=== PATIENT | female | born 1955 | race Asian ===

== ENCOUNTER → 2016-07-31 | Outpatient (CLI) | payer BC ==
[~2016-07-31] MED LIST: ACET325T96 PO; ACYC-223 PO; ASPCH81X PO; CALC-51 PO; CHOL1000 PO; CLOT10TR2 MT; FSMD/70 PO; LEVO-14 PO; MAGN400T6 PO; MELA1TAB5 PO; MULT-506 PO; MYCO250C26 PO; OMEP40CA41 PO; PRED20TA PO; PRT/20 PO; SENN-61 PO; SNG10 PO; SULF800T23 PO; TACR0.5C3 PO; TACR1CAP PO; TPRSR25 PO; VLC450 PO; ZLF/50 PO
[2016-07-31 10:51] LABS: HEMATOCRIT 30.1 % (37-47); MEAN CELL VOLUME 100.3 fL (80-100); MEAN CORPUSCULAR HGB CONC 31.9 g/dl (32-36); MEAN PLATELET VOLUME 9.3 fL (7.4-10.4); PLATELET COUNT 356 K/uL (130-400); WHITE BLOOD COUNT 8.95 K/uL (4.8-10.8)
[2016-07-31 11:53] LABS: BLOOD UREA NITROGEN 27 mg/dl (7-18); BUN/CREATININE RATIO 33.3 (10-20); CALCIUM 9.3 mg/dl (8.5-10.1); CARBON DIOXIDE 27 mmol/L (21-32); CHLORIDE 107 mmol/L (98-107); CREATININE 0.81 mg/dl (0.60-1.20); GLUCOSE 101 mg/dl (70-99); POTASSIUM 4.4 mmol/L (3.5-5.1); SODIUM 140 mmol/L (136-145)
== END | disposition home or self-care (01) ==
LOC: C.LABBC 07:55
PROVIDERS: ATTEND Nurse Practitioner
DX: Z94.1 Heart transplant status (principal); Z79.899 Other long term (current) drug therapy

== ENCOUNTER → 2017-05-01 | Outpatient (CLI) | payer OTHER ==
[~2017-05-01] MED LIST changes: -LEVO-14 PO; -MULT-506 PO; -SNG10 PO; -TPRSR25 PO
--- NOTE | 2017-05-01 11:03 | DIAGNOSTIC IMAGING REPORT ---
L HAND MIN 3 VIEWS ROUTINE HISTORY: 62 years-old Female PAIN IN JOINTS OF LEFT HAND acute left hand pain without acute trauma reported. Pain is most pronounced within the left fifth digit distally COMPARISON: None available TECHNIQUE: 3 views of the left hand FINDINGS: Mild particular osteopenia. Mild radiocarpal, first carpometacarpal and multidigit interphalangeal degenerative changes are noted without acute fracture or subluxation. There is mild soft tissue swelling with moderate joint space narrowing and marginal osteophytosis and subchondral sclerosis about the fifth DIP joint. Ill-defined lucency noted involving the radial aspect of the DIP joint along the middle phalangeal head and base of the distal phalanx. IMPRESSION: 1. No acute fracture or subluxation. 2. Moderate joint space narrowing with subchondral sclerosis and marginal osteophytosis about the fifth DIP joint with mild soft tissue swelling. Probable subcortical cystic changes with mild marginal erosions thought to be less likely. 3. Periarticular osteopenia and additional mild degenerative changes as above. The above report was generated using voice recognition software. It may contain grammatical, syntax or spelling errors. Electronically signed by: Nimesh Zapata M.D. 05/01/2017 11:01 AM Dictated Date/Time: 05/01/2017 10:58 AM
--- NOTE | 2017-05-01 11:45 | DIAGNOSTIC IMAGING REPORT ---
PELVIC COMPLETE NON OB HISTORY: 62 years-old Female POST MENOPAUSAL BLEEDING acute postmenopausal vaginal bleeding COMPARISON: None available TECHNIQUE: Multiple real-time sonographic images of the deep pelvic structures were obtained transabdominally and transvaginally assessing grayscale appearance, color and spectral flow FINDINGS: TRANSABDOMINAL: Pelvic structures are not well seen. TRANSVAGINAL: Anteflexed uterus measures 9.0 x 4.2 x 4.7 cm. Endometrium measures 5 mm. Nabothian cysts of the cervix. Multiple intramural leiomyomas are noted throughout the uterus, largest of which measures up to 1.3 cm within the posterior aspect of the right mid uterine body. The right ovary measures 2.5 x 1.2 x 1.2 cm and is unremarkable with arterial inflow documented. The left ovary measures 1.7 x 1.8 x 1.0 cm demonstrating arterial inflow. Increased vascularity is noted adjacent to the left ovary suggesting normal vascular structures. No definite adnexal mass lesions identified. Mild free fluid within the cul-de-sac and adjacent to the left ovary. IMPRESSION: 1. Endometrium is mildly thickened considering postmenopausal state at 5 mm. This finding could be further evaluated with hysteroscopy and tissue sampling. 2. Fibroid uterus. 3. Mild free pelvic fluid of uncertain etiology. The above report was generated using voice recognition software. It may contain grammatical, syntax or spelling errors. Electronically signed by: Nimesh Zapata M.D. 05/01/2017 11:43 AM Dictated Date/Time: 05/01/2017 11:35 AM
== END | disposition home or self-care (01) ==
LOC: C.ULTRBC 10:05
PROVIDERS: ATTEND Family Medicine
DX: N95.1 Menopausal and female climacteric states (principal); M25.542 Pain in joints of left hand; M25.742 Osteophyte, left hand; M79.89 Other specified soft tissue disorders; M85.842 Other specified disorders of bone density and structure, left hand; R93.8 Abnormal findings on diagnostic imaging of other specified body structures; D25.9 Leiomyoma of uterus, unspecified

== ENCOUNTER → 2017-08-20 | Outpatient (CLI) | payer OTHER ==
[~2017-08-20] MED LIST changes: +ACET-1693 PO; -ACET325T96 PO
--- NOTE | 2017-08-21 15:04 | MAMMOGRAPHY REPORT ---
BILATERAL DIGITAL SCREENING MAMMOGRAM TOMOSYNTHESIS WITH CAD: 08/20/2017 CLINICAL HISTORY: Asymptomatic. Personal history of breast cancer. TECHNIQUE: Breast tomosynthesis in addition to standard 2D mammography was performed. Current study was also evaluated with a Computer Aided Detection (CAD) system. COMPARISON: Comparison is made to exams dated: 04/10/2013 mammogram - [facility] and 04/13/2011 mammogram. BREAST COMPOSITION: The tissue of both breasts is extremely dense, which lowers the sensitivity of m ammography. FINDINGS: There is a cluster of microcalcifications in the 11:00 to 12:00 right breast posteriorly, for which additional spot magnification views are recommended. A possible subtle area of architectur al distortion in the far posterior 11:00 right breast needs additional spot compression tomosynthesis views and possible ultrasound. There is a coiled metallic biopsy marker clip in the 12:00 posterior right breast. Stable surgical c lips in the superior posterior left breast, projecting near and over the pectoralis muscle on the MLO view. No other suspicious mass, architectural distortion or cluster of microcalcifications is seen. IMPRESSION: ACR BI-RADS CATEGORY 0: INCOMPLETE EVALUATION: NEED ADDITIONAL IMAGING EVALUATION The cluster of microcalcifications in the 11:00 to 12:00 posterior right breast, and possible subtle area of architectural distortion in the 11:00 posterior right breast need additional imaging evaluati on. The patient will be called to schedule an appointment. Approximately 10% of breast cancers are not detected with mammography. A negative mammographic report should not delay biopsy if a clinically suggestive mass is present. Henna Brooks M.D. ay/:08/20/2017 15:32:58 Cream Tester: Jenelle HOLGUIN(Jemma)(Sacha)(BD), [facility] letter sent: Addl Imaging 0 BI-RADS Code: ACR BI-RADS Category 0: Incomplete Evaluation: Need Additional Imaging Evaluation
== END | disposition home or self-care (01) ==
LOC: C.MAMM 14:22
PROVIDERS: ATTEND Family Medicine
DX: Z12.31 Encounter for screening mammogram for malignant neoplasm of breast (principal); Z13.820 Encounter for screening for osteoporosis; Z85.3 Personal history of malignant neoplasm of breast; R92.0 Mammographic microcalcification found on diagnostic imaging of breast; R92.8 Other abnormal and inconclusive findings on diagnostic imaging of breast